=== PATIENT | male | born 1990 | race Caucasian/White ===

== ENCOUNTER 2018-01-06 15:22 | Emergency (ER) | payer MEDICAID ==
[~2018-01-06] VITALS: Ht 182.9 cm; Wt 85.0 kg
[2018-01-06] MEDS: IBUPROFEN 800 MG TABLET PO ONE (16:55)
[2018-01-06] MEDS: CEPHALEXIN MONOHYDRATE 500 MG CAPSULE PO ONE (16:55)
[2018-01-06 18:09] VITALS: BP 133/81
== END 2018-01-06 18:14 | disposition home or self-care (01) ==
LOC: EMS 15:23
DX: L03.116 Cellulitis of left lower limb (principal); L03.114 Cellulitis of left upper limb; F11.20 Opioid dependence, uncomplicated; F17.210 Nicotine dependence, cigarettes, uncomplicated